=== PATIENT | male | born 1945 | race Caucasian/White ===

== ENCOUNTER → 2020-06-10 | Outpatient (REF) | payer MEDICARE, BC, OTHER | LOC: M LAB REF 12:44 | PROVIDERS: ATTEND Dermatology | DX: C44.612 Basal cell carcinoma of skin of right upper limb, including shoulder (principal); C44.519 Basal cell carcinoma of skin of other part of trunk; D23.5 Other benign neoplasm of skin of trunk | CPT/HCPCS: 11102; 11103; 88305; G0463 ==

== ENCOUNTER → 2020-08-24 | Outpatient (REF) | payer MEDICARE, OTHER | LOC: M LAB REF 14:08 | PROVIDERS: ATTEND Dermatology | DX: C44.612 Basal cell carcinoma of skin of right upper limb, including shoulder (principal) ==